=== PATIENT | female | born 1960 ===

== ENCOUNTER 2020-05-17 11:59 | Emergency (ER) | payer MEDICAID ==
[~2020-05-17] VITALS: Ht 165.1 cm; Wt 67.2 kg
[~2020-05-17 11:59] MED LIST: ACET-1008 PO; ALBU8.5H8 INH; AMA100C PO; AMIO200T61 PO; DOCU250C16 PO; ENOX60SY7 SUBCUT; ESCI10TA PO; ESCI5TAB PO; FERGLU300T PO; IPRA3AMP9 NEB; MONT10TA26 PO; PANT-47 PO; PIPE4.5F6 IV; PRED20TA PO; RISP0.5T74 PO; TRAZ-251 PO; TRIA16.911 BOTHNARES
[2020-05-17 12:02] VITALS: BP 123/93
--- NOTE | 2020-05-17 12:15 | NUR ---
Patient has weak carotid pulse and not oxygenating well. patient layed flat and assessing pulse which is faint but palpable. Patient is currently be bagged via bag valve mask.
--- NOTE | 2020-05-17 12:18 | NUR ---
No palpable carotid or femoral pulses, ultra sound assessment being performed at bedside by Dr. Kwok. Heart rate is PEA 55 beats/min.
--- NOTE | 2020-05-17 12:19 | NUR ---
Ultrasound per Dr. Kwok, with no electrical or cardiac activity. Patient had a breif pause of asystole on monitor, rate is now PEA at 37 beats/min. Patients is still being bagged via BVM by javier HINSON
--- NOTE | 2020-05-17 12:21 | NUR ---
Patients current rhythm is asystole 0 beats/min, per patients paperwork from qamar she is currently a DNR with x3 RNs and MD. TOD 1221, due to no cardiac activity upon ultrasound.
--- NOTE | 2020-05-17 13:00 | NUR ---
SPOKE TO PT'S HEALTH CARE MARKETING MANAGER, ANDREAS. GIVEN PHONE NUMBER FOR [facility] AND NAME OF PEEOPLE IN CHARGE OF PT'S CARE (GIACOMO, AND DR. WILSON)
--- NOTE | 2020-05-17 13:08 | NUR ---
Spoke to Dr. Melara regarding pt's care, she states she will contact Jenni and have her return a phone call.
--- NOTE | 2020-05-17 13:55 | NUR ---
[facility] CALLED BACK AND PT DOES NOT HAVE ANY FAMILY AND NO MORTUARY OF CHOICE LISTED. PT WILL HAVE TO HAVE THE CORONERS OFFICE SET UP A MORTUARY AND THEY CAN CALL [facility] TO SEE IF THERE ARE ANY MONIES TO HELP WITH COST.
--- NOTE | 2020-05-17 14:15 | NUR ---
NATIONAL RECRUITER CONTACTED. NOT NATIONAL RECRUITER CASE.
--- NOTE | 2020-05-17 14:35 | NUR ---
GLENNY TO RETRIEVE PT
== END 2020-05-17 15:45 | disposition expired ==
LOC: ER 12:00
DX: J96.90 Respiratory failure, unspecified, unspecified whether with hypoxia or hypercapnia (principal); R62.50 Unspecified lack of expected normal physiological development in childhood; R41.82 Altered mental status, unspecified; Z79.899 Other long term (current) drug therapy
CPT/HCPCS: 92950; 94660; 99285